=== PATIENT | female | born 1945 | race Caucasian/White ===

== ENCOUNTER 2016-11-27 06:18 | Day surgery (SDC) | payer MEDICARE, OTHER ==
[2016-11-27] VITALS (8 sets, daily range): BP systolic 108–144; BP diastolic 58–79; PULSE 62–75; RESP 14–20; TEMP 98.4–98.5; O2SAT 91–97
[~2016-11-27] VITALS: Ht 157.5 cm; Wt 78.2 kg
[2016-11-27] MEDS ORDERED: NOVORP2 SQ (06:44)
[2016-11-27] MEDS ORDERED: METO25TA3 PO (06:46)
[2016-11-27] MEDS ORDERED: BUME1TAB PO (06:46)
[2016-11-27] MEDS ORDERED: POTA-163 PO (06:47)
[2016-11-27] MEDS ORDERED: ASPI325T PO (06:49)
[2016-11-27] MEDS ORDERED: LEVO.15 PO (06:50)
[2016-11-27] MEDS ORDERED: OXYC1TAB35 PO (06:52)
[2016-11-27] MEDS ORDERED: ICOS1CAP PO (06:52)
[2016-11-27] MEDS ORDERED: VITD400 PO (06:53)
[2016-11-27] MEDS ORDERED: VITA200C3 PO (06:54)
[2016-11-27] MEDS ORDERED: CYAN1TAB21 SL (06:54)
[2016-11-27] MEDS ORDERED: CETI10 PO (06:55)
[2016-11-27] MEDS ORDERED: LIDO4CRE TOPICAL (06:56)
[2016-11-27] MEDS ORDERED: GAS-CAP3 PO (06:57)
[2016-11-27] MEDS ORDERED: NITR1SUB3 SL (06:57)
[2016-11-27] MEDS ORDERED: SODIUM CHLOR 0.9% 1000 ML IV SCH (07:00)
[2016-11-27] MEDS ORDERED: SODIUM CHLORIDE 0.9% FLUSH 10 ML FLUSH IV FLUSH PRN (07:00)
[2016-11-27] MEDS ORDERED: MIDAZOLAM HCL 5 MG/5 ML VIAL ONE (07:58)
[2016-11-27] MEDS ORDERED: fentaNYL CITRATE 250 MCG/5 ML AMP ONE (07:58)
[2016-11-27] MEDS ORDERED: LIDOCAINE 1%/EPINEPHrine 1:100,000 SOLN 20 ML VIAL ONE (08:08)
--- NOTE | 2016-11-27 09:59 | RADRPT ---
EXAM DATE/TIME: 11/27/2016 08:23 [facility] COMPARISON: No previous studies available for comparison. INDICATIONS : Left lung mass SEDATION TIME: 15 minutes BIOPSY SITE: Left lung MEDICATION(S): 1.) 2 mg midazolam (Versed) IV 2.) 100 mcg fentanyl (Sublimaze) IV DEVICE(S): 1.) 18 gauge Lyons blunt needle 2.) 20 gauge Temno core biopsy needle MEDICAL HISTORY : Cardiovascular disease. Hypertension. SURGICAL HISTORY : Hysterectomy. Cholecystectomy. Pacemaker. ENCOUNTER: Initial ACUITY: 1 day PAIN SCORE: 0/10 LOCATION: Left chest A total of three core specimen(s) were obtained and sent to the laboratory for pathologic evaluation. PROCEDURE: 1. CT guided lung biopsy. Prior to the procedure informed consent was obtained. Any appropriate prior imaging studies were rev iewed. Using automated exposure control and adjustment of the mA and/or kV according to patient size, radiation dose was kept as low as reasonably achievable to obtain optimal diagnostic quality images. DICOM format image data is available electronically for review and comparison. The site was prepped in a sterile fashion. Full sterile technique was used, including cap, mask, lashawn rile gloves and gown and a large sterile sheet. Hand hygiene and 2% chlorhexidine and/or betadine/al cohol prep was utilized per protocol for cutaneous antisepsis. The skin and subcutaneous tissues wer e infiltrated with local anesthetic solution. Under CT guidance an 18 gauge blunt was placed down to the mass from the supine oblique approach. 3 cores were obtained. Material was sent for pathology and culture. Follow-up CT scan reveals no pneumothorax. Conscious sedation was performed with the prescribed dosages and duration as above in the presence of an independent trained radiology nurse to assist in the monitoring of the patient. EKG and oximetry remained stable throughout the procedure. The patient tolerated the procedure well and there were no complications. The patient was sent to Radiology Outpatient Unit in stable condition. CONCLUSION: Uncomplicated CT guided biopsy. 3 cores were obtained. Culture and pathology are pending. Jarvis Shelley MD FACR on November 27, 2016 at 9:55 Board Certified Radiologist. This report was verified electronically.
--- NOTE | 2016-11-27 12:11 | RADRPT ---
EXAM DATE/TIME: 11/27/2016 11:54 [facility] COMPARISON: No previous studies available for comparison. INDICATIONS : Post left lung biopsy MEDICAL HISTORY : Cardiovascular disease. Hypertension SURGICAL HISTORY : Hysterectomy. Cholecystectomy. Pacemaker. ENCOUNTER: Initial ACUITY: 1 day PAIN SCORE: 0/10 LOCATION: Left chest FINDINGS: A single frontal expiratory view of the chest was performed. The lungs are symmetrically aerated and clear. No evidence of pneumothorax. Mediastinal structures are in the midline. The cardio-mediastinal contours and bronchopulmonary markings are unremarkable for an expiratory exam . Osseous structures are intact. CONCLUSION: There is no pneumothorax following left lung biopsy. Jarvis Shelley MD FACR on November 27, 2016 at 12:08 Board Certified Radiologist. This report was verified electronically.
== END 2016-11-27 13:23 | disposition home or self-care (01) ==
LOC: HRAD 06:18 → HRIP 06:29 → HRAD 13:23
PROVIDERS: ATTEND Specialist
DX: C34.92 Malignant neoplasm of unspecified part of left bronchus or lung (principal); I25.10 Atherosclerotic heart disease of native coronary artery without angina pectoris; I10 Essential (primary) hypertension; Z01.818 Encounter for other preprocedural examination
CPT/HCPCS: 32405; 71010; 77012; 87070; 87176; 87205; 88305; 88341; 88342; J2250; J3010